=== PATIENT | female | born 1955 | race Caucasian/White ===

== ENCOUNTER 2019-08-17 06:33 | Emergency (ER) | payer OTHER ==
[~2019-08-17] VITALS: Ht 157.5 cm; Wt 80.3 kg
--- NOTE | 2019-08-17 07:42 | REP ---
Clinical: Pain. Technique: Neutral and frog lateral views of the left hip. Findings: Generalized age-related changes are appreciated. No acute fracture dislocation. Surrounding soft tissues are grossly unremarkable. Impression: Age-appropriate left hip. No acute fracture dislocation. Electronically Signed by Ten Mondragon MD 08/17/2019 07:33 A
--- NOTE | 2019-08-17 07:43 | REP ---
Clinical: Left knee pain. Technique: AP, lateral, bilateral oblique and sunrise view of the left knee. Findings: Early moderate tricompartmental osteoarthritic degenerative changes are appreciated. No acute fracture dislocation. No effusion. Impression: Moderate tricompartmental osteoarthritic changes. Electronically Signed by Ten Mondragon MD 08/17/2019 07:35 A
--- NOTE | 2019-08-17 07:45 | REP ---
Clinical: Pain. Technique: AP, lateral, bilateral oblique views of the left ankle. Findings: Generalized age-related changes are appreciated. No acute fracture dislocation. Ankle mortise appears intact. Small calcifications in the Achilles tendon suggests tendinopathy versus old injury. Impression: 1. Generalized age-related changes to the ankle. 2. Achilles tendinopathy versus changes related to old injury. Electronically Signed by Ten Mondragon MD 08/17/2019 07:37 A
[2019-08-17] MEDS ORDERED: EZET10TA21 (08:18)
[2019-08-17] MEDS ORDERED: GLIP5TAB20 (08:18)
[2019-08-17] MEDS ORDERED: OMEP-218 (08:18)
[2019-08-17] MEDS ORDERED: LOSA100T5 (08:18)
[2019-08-17] MEDS ORDERED: VICT18IN (08:18)
[2019-08-17] MEDS ORDERED: ALOG25TA (08:18)
[2019-08-17] MEDS ORDERED: ATOR80TA59 (08:18)
[2019-08-17] MEDS ORDERED: MELO15TA28 (08:18)
[2019-08-17] MEDS ORDERED: METF-791 (08:18)
--- NOTE | 2019-08-17 08:23 | REP ---
Duplex extremity venous ultrasound: Left lower extremity. History: Left lower extremity pain. Rule out DVT. Findings: The deep veins are anechoic and fully compressible from the groin to the popliteal fossa in the left lower extremity. Color flow imaging is homogeneous. Spectral Doppler interrogation demonstrates intact respiratory variation in flow and normal manual augmentation of flow. There is no evidence of deep vein thrombosis. Impression: Negative left lower extremity duplex venous ultrasound. No evidence of deep vein thrombosis. Electronically Signed by Nikita Munguia MD 08/17/2019 08:14 A
[2019-08-17] MEDS ORDERED: ACETAMINOPHEN 650MG ER TAB (TYLENOL ARTHRITIS) PO PRN (08:45)
--- NOTE | 2019-08-17 09:25 | REP ---
Five views lumbar spine: 08/17/2019. Indication: Low back pain. Left leg pain. Comparison: None. Findings: There is no acute fracture, subluxation or dislocation. Multilevel disc space narrowing is present most pronounced at L1/L2 and L4/L5. Mild levoscoliosis of the lumbar spine is present. The neural foramina appear patent. Aortoiliac atherosclerotic disease is present. No lytic or blastic lesions are noted. Impression: No acute osseous lumbar spine injury. Electronically Signed by Miller Meza DO 08/17/2019 09:17 A
[2019-08-17 09:43] VITALS: BP 152/78
== END 2019-08-17 10:08 | disposition home or self-care (01) ==
LOC: M ED 06:33
DX: M17.12 Unilateral primary osteoarthritis, left knee (principal); M19.072 Primary osteoarthritis, left ankle and foot; M76.62 Achilles tendinitis, left leg; E11.9 Type 2 diabetes mellitus without complications; I10 Essential (primary) hypertension; E78.5 Hyperlipidemia, unspecified; Z79.899 Other long term (current) drug therapy; Z79.84 Long term (current) use of oral hypoglycemic drugs; Z87.891 Personal history of nicotine dependence

== ENCOUNTER 2019-10-05 12:40 | Emergency (ER) | payer OTHER ==
[~2019-10-05] VITALS: Ht 157.5 cm; Wt 77.5 kg
[~2019-10-05 12:40] MED LIST: ALOG25TA; ATOR80TA59; EZET10TA21; GLIP5TAB20; LOSA100T5; MELO15TA28; METF-791; OMEP-218; VICT18IN
[2019-10-05] MEDS ORDERED: CARV25TA (12:55)
[2019-10-05] MEDS ORDERED: ACET-683 (12:55)
[2019-10-05] MEDS ORDERED: CIDA500T2 PO (12:55)
[2019-10-05] MEDS ORDERED: GABA-1171 (12:55)
[2019-10-05] MEDS ORDERED: ASPI81CH33 PO (12:55)
[2019-10-05 13:33] LABS: BASO % 0.2 % (0.0-1.0); EOS # 0.1 10^3/uL (0.0-0.5); EOS % 1.1 % (0.0-3.0); HEMATOCRIT 39.9 % (36.0-47.0); HEMOGLOBIN 13.2 g/dl (12.0-15.5); LYMPH # 1.3 10^3/uL (1.5-5.0); LYMPH % 23.4 % (24.0-44.0); MEAN CORPUSCULAR HEMOGLOBIN 28.8 pg (27.0-33.0); MEAN CORPUSCULAR HGB CONC 33.1 g/dl (32.0-36.5); MEAN CORPUSCULAR VOLUME 86.9 fl (80.0-96.0); MONO # 0.6 10^3/uL (0.0-0.8); MONO % 10.9 % (0.0-5.0); NEUTROPHILS # 3.4 10^3/uL (1.5-8.5); PLATELET COUNT, AUTOMATED 264 10^3/uL (150-450); RED BLOOD COUNT 4.59 10^6/uL (4.00-5.40); WHITE BLOOD COUNT 5.3 10^3/uL (4.0-10.0)
[2019-10-05 13:58] LABS: BILIRUBIN,DIRECT 0.2 MG/DL (0.0-0.2); BILIRUBIN,TOTAL 0.6 MG/DL (0.2-1.0); TOTAL PROTEIN 7.2 GM/DL (6.4-8.2)
[2019-10-05 14:03] LABS: INFLUENZA A AMPLIFICATION NEGATIVE (NEGATIVE); INFLUENZA B AMPLIFICATION NEGATIVE (NEGATIVE)
[2019-10-05] MEDS ORDERED: NS 1,000 ML IV ONE ×2 (15:00→16:30)
[2019-10-05 16:15] LABS: CALCIUM LEVEL 9.3 MG/DL (8.8-10.2); CREATININE FOR GFR 1.52 MG/DL (0.55-1.30); GLOMERULAR FILTRATION RATE 36.8 (>45); POTASSIUM SERUM 3.8 MEQ/L (3.5-5.1)
[2019-10-05 17:12] VITALS: BP 132/75
== END 2019-10-05 17:13 | disposition home or self-care (01) ==
LOC: M ED 12:40
DX: E86.0 Dehydration (principal); N17.9 Acute kidney failure, unspecified; E11.9 Type 2 diabetes mellitus without complications; I10 Essential (primary) hypertension; E78.5 Hyperlipidemia, unspecified; Z79.899 Other long term (current) drug therapy; Z79.82 Long term (current) use of aspirin; Z79.84 Long term (current) use of oral hypoglycemic drugs; Z87.891 Personal history of nicotine dependence

== ENCOUNTER → 2020-07-18 | Outpatient (CLI) | payer OTHER ==
[~2020-07-18] MED LIST changes: +ACET-683; +ASPI81CH33 PO; +CARV25TA; +CIDA500T2 PO; +GABA-1171; -METF-791; +METF-838
[2020-07-18 08:51] LABS: HEMATOCRIT 35.9 % (36.0-47.0); HEMOGLOBIN 11.8 g/dl (12.0-15.5); MEAN CORPUSCULAR HGB CONC 32.9 g/dl (32.0-36.5); MEAN CORPUSCULAR VOLUME 88.2 fl (80.0-96.0); PLATELET COUNT, AUTOMATED 219 10^3/uL (150-450); RED BLOOD COUNT 4.07 10^6/uL (4.00-5.40)
[2020-07-18 08:54] LABS: INR 0.93; PROTHROMBIN TIME 12.7 SECONDS (12.5-14.3)
[2020-07-18 09:12] LABS: ERYTHROCYTE SEDIMENTATION RATE 22 mm/hr (0-30)
[2020-07-18 09:18] LABS: BLOOD UREA NITROGEN 21 MG/DL (7-18); CALCIUM LEVEL 8.9 MG/DL (8.8-10.2); CARBON DIOXIDE LEVEL 27 MEQ/L (21-32); CHLORIDE LEVEL 107 MEQ/L (98-107); CREATININE FOR GFR 0.98 MG/DL (0.55-1.30); GLOMERULAR FILTRATION RATE > 60.0 (>45); GLUCOSE, FASTING 117 MG/DL (70-100); POTASSIUM SERUM 4.7 MEQ/L (3.5-5.1); SODIUM LEVEL 140 MEQ/L (136-145)
[2020-07-18 09:19] LABS: ALBUMIN 3.7 GM/DL (3.2-5.2); ALT/SGPT 21 U/L (12-78); BILIRUBIN,TOTAL 0.3 MG/DL (0.2-1.0); TOTAL PROTEIN 6.7 GM/DL (6.4-8.2)
--- NOTE | 2020-07-18 09:21 | REP ---
INDICATION: OSTEOARTHRITIS RIGHT KNEE- LABS/EKG 1ST COMPARISON: 08/07/2015 TECHNIQUE: PA and lateral. FINDINGS: The mediastinum and cardiac silhouette are normal. The lung gordon are clear and without acute consolidation, effusion, or pneumothorax. The skeletal structures are intact and normal. IMPRESSION: No acute cardiopulmonary process. <Electronically signed by Ten Mondragon > 07/18/20 0917
--- NOTE | 2020-07-18 12:18 | ECGEPIP ---
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
== END ==
LOC: M LAB 07:56
PROVIDERS: ATTEND Orthopaedic Surgery
DX: Z01.818 Encounter for other preprocedural examination (principal); M17.11 Unilateral primary osteoarthritis, right knee

== ENCOUNTER → 2020-07-26 | Outpatient (CLI) | payer OTHER ==
[~2020-07-26] MED LIST changes: -ACET-683; +ACET-683 PO; -ALOG25TA; +ALOG25TA PO; -CARV25TA; +CARV25TA PO; -EZET10TA21; +EZET10TA21 PO; -GABA-1171; +GABA-1171 PO; -GLIP5TAB20; +GLIP5TAB20 PO; -LOSA100T5; +LOSA100T5 PO; -MELO15TA28; +MELO15TA28 PO; -METF-838; +METF-838 PO; +MONT5TAB2 PO; -OMEP-218; +OMEP-218 PO; -VICT18IN; +VICT18IN SC
== END ==
LOC: M LABSMTC 10:34
PROVIDERS: ATTEND Anesthesiology
DX: Z01.812 Encounter for preprocedural laboratory examination (principal); Z20.828 Contact with and (suspected) exposure to other viral communicable diseases

== ENCOUNTER 2020-07-31 06:50 | Inpatient (IN) | payer OTHER ==
[~2020-07-31] VITALS: Ht 157.5 cm; Wt 83.4 kg
[~2020-07-31 06:50] MED LIST changes: -ATOR80TA59; +ATOR80TA59 PO; +LR 1,000 ML IV ONE; +ceFAZolin SOD 2 GM in IV 1 EA IV ONE
[2020-07-31] MEDS ORDERED: MIDAZOLAM INJ 2MG/2ML VIAL (J2250 PER 1MG) IV PRN (07:01)
[2020-07-31] MEDS ORDERED: fentaNYL 100 MCG/2 ML INJECTION (J3010) IV PRN ×2 (07:01→11:45)
[2020-07-31] MEDS ORDERED: ROPIvacaine 0.5% 30ML INJECTION (J2795 PER 1MG) XX ONE (08:15)
[2020-07-31] MEDS ORDERED: LIDOCAINE 1% MDV 20ML VIAL XX ONE (08:15)
[2020-07-31] MEDS ORDERED: MIDAZOLAM INJ 2MG/2ML VIAL (J2250 PER 1MG) As Ordered ONE (08:17)
[2020-07-31] MEDS ORDERED: LIDOCAINE 2% 100MG/5ML SDV (FOR ANES.) As Ordered ONE (08:17)
[2020-07-31] MEDS ORDERED: fentaNYL 100 MCG/2 ML INJECTION (J3010) As Ordered ONE (08:17)
[2020-07-31] MEDS ORDERED: ONDANSETRON 4MG/2ML VIAL As Ordered ONE (08:17)
[2020-07-31] MEDS ORDERED: propofoL 500 MG/50 ML VIAL As Ordered ONE (08:17)
[2020-07-31] MEDS ORDERED: dexameTHASONE 10MG/1ML VIAL PRES.FREE (J1100 PER 1MG) XX ONE (08:30)
[2020-07-31] MEDS ORDERED: TRANEXAMIC ACID 100 MG/ML 10ML VIAL As Ordered ONE (09:33)
[2020-07-31] MEDS ORDERED: BUPIVACAINE HCL 0.25% 10ML VIAL As Ordered ONE (09:34)
[2020-07-31] MEDS ORDERED: ceFAZolin 1GM VIAL (J0690 PER 500MG) As Ordered ONE (09:35)
[2020-07-31] MEDS ORDERED: EPINEPHrine INJ 1 MG/ML 1ML AMP As Ordered ONE (09:35)
[2020-07-31] MEDS ORDERED: BUPIVACAINE LIPOSOME/PF 1.3% 20ML VIAL (13.3MG/ML)(EXPAREL)(C9290 PER1MG) As Ordered ONE (09:35)
--- NOTE | 2020-07-31 10:16 | IPN ---
PROGRESS NOTE DATE: 07/31/2020 SUBJECTIVE AND PLAN: Patient seen and examined. She wishes to go ahead with a right total knee arthroplasty. She understands the nature of this, the risks of bleeding, infection, damage to nerves and vessels, persistent pain, adkins loosening, blood clots, medical problems, among others. Pre-op clearance was obtained.
[2020-07-31] MEDS ORDERED: ONDANSETRON 4MG/2ML VIAL IV PRN (11:45)
[2020-07-31] MEDS ORDERED: LR 1,000 ML IV SCH ×2 (11:45)
[2020-07-31] MEDS ORDERED: oxyCODONE 5MG TAB PO PRN (11:45)
[2020-07-31] MEDS ORDERED: ACETAMINOPHEN TAB 650MG DOSE (2X325MG) PO PRN (11:45)
[2020-07-31] MEDS ORDERED: MORPHINE 4 MG/ML 1ML VIAL/SYRINGE (J2270) IV PRN (11:45)
[2020-07-31] MEDS ORDERED: MORPHINE 2 MG/ML 1ML VIAL (J2270) IV PRN ×2 (11:45)
--- NOTE | 2020-07-31 12:28 | REP ---
INDICATION: S/P TOTAL COMPARISON: None. TECHNIQUE: Postoperative study, two views. FINDINGS: There is a total knee arthroplasty with the components tightly applied and in satisfactory positions and alignment. Skin armand are incidentally noted. IMPRESSION: Total knee arthroplasty as described. <Electronically signed by Jayesh Elizalde > 07/31/20 [id number]
[2020-07-31 12:30] VITALS: BP 143/84
[2020-07-31 13:00] VITALS: BP 143/80
--- NOTE | 2020-07-31 13:36 | HPE ---
HISTORY AND PHYSICAL DATE OF ADMISSION: 07/31/2020 ATTENDING PHYSICIAN: JSOE D SAN MD CHIEF COMPLAINT: Right knee pain and stiffness. HISTORY OF PRESENT ILLNESS: The patient is a 65-year-old female with progressively worsening right knee pain and stiffness. She failed to improve with conservative measures. She continues to have symptoms with weightbearing activities and activities of daily living. She has consented for an elective right total knee arthroplasty with Dr. San for her continued symptoms. Medical optimization completed with Dr. Clark and was reviewed at today's visit. CURRENT MEDICATIONS: 1. Tylenol 500 mg two capsules once daily. 2. Alogliptin 25 mg daily. 3. Amlodipine 2.5 mg daily. 4. Aspirin 81 mg daily. 5. Lipitor 80 mg daily. 6. Carvedilol 25 mg twice daily. 7. Ezetimibe 10 mg daily. 8. Gabapentin 100 mg daily. 9. Glipizide 5 mg once daily. 10.Glucosamine chondroitin 750/600 mg, two capsules twice daily. 11.Vicodin 5/325 mg four times daily as needed. 12.Losartan/Hydrochlorothiazide 100/25 mg daily. 13.Meloxicam 15 mg daily. 14.Metformin 500 mg twice daily. 15.Omeprazole 20 mg daily. 16.Singulair 10 mg daily. 17.Victoza subcutaneous. 18.Vitamin D 2000 units twice daily. ALLERGIES: There are no known drug allergies. CHRONIC MEDICAL CONDITIONS: 1. Hyperlipidemia. 2. Hypertension. 3. Diabetes. 4. Seasonal allergies. 5. Gastroesophageal reflux disease. PAST SURGICAL HISTORY: 1. Hernia repair. SOCIAL HISTORY: The patient does have second-hand cigarette smoke exposure. Rare use of alcohol. REVIEW OF SYSTEMS: The patient denies fevers, chills, nausea, vomiting or diarrhea. Denies chest pain, shortness of breath, lightheadedness, dizziness or headaches. Denies any recent upper respiratory or urinary tract infection symptoms. She denies any abdominal pain. Patient does continue to have right knee pain with weightbearing activities and activities of daily living. PHYSICAL EXAMINATION: GENERAL: Well-nourished, well-developed female in no apparent distress. She is alert and oriented and cooperative. Mood and affect are appropriate. VITAL SIGNS: Height 62 inches, weight 183.2 pounds, temperature 96.8. Blood pressure 154/84, heart rate 87, respirations 13. NECK: Supple without lymphadenopathy. HEART: Regular rate and rhythm. LUNGS: Clear to auscultation bilaterally. Breathing is regular and unlabored. ABDOMEN: Soft and nontender. Bowel sounds are present. MUSCULOSKELETAL: Right knee exhibits no gross abnormalities. Skin is intact. There is tenderness along the medial and lateral joint lines. Patient can extend the knee about 10 degrees and flex to 95 degrees. Right lower extremity strength is 5/5. No hip irritability elicited with range of motion testing. Calf is soft and nontender without evidence of DVT. She is neurovascularly intact distally. LABORATORY DATA: EKG sinus rhythm with early repolarization. Right knee x-ray notable for endstage degenerative changes. Chest x-ray no acute cardiopulmonary process. Pro-thrombin 12.7, INR 0.93. Complete blood count: ESR 22, WBC is 8, RBC is 4.07. Hemoglobin decreased at 11.8, hematocrit decreased to 35.9, platelets 219,000. Comprehensive metabolic profile: Fasting glucose elevated at 117, BUN elevated at 21. Creatinine 0.98, GFR greater than 60. Sodium 140, potassium 4.7, chloride 107, carbon dioxide 27, anion gap decreased at 6, calcium 8.9, AST 16, ALT 21, alkaline phosphatase 85, total bilirubin 0.3, total protein 6.7, albumin 3.7, albumin 3.7, albumin/globulin ratio 1.2. IMPRESSION: Right knee osteoarthritis with x-rays notable for endstage degenerative changes. PLAN: Patient has consented for an elective right total knee arthroplasty with Dr. San for her continued symptoms. Medical optimization completed with Dr. Clark. Patient will be NPO after midnight tonight unless directed to take one of her daily medications with a small sip of water by her primary foster care worker. She has been using her Hibiclens and Bactroban as directed. The patient is following her primary foster care worker's recommendations on how to take daily medications including any anticoagulants.
[2020-07-31 14:00] VITALS: BP 137/83
[2020-07-31] MEDS ORDERED: DEXTROSE 50% 50 ML SYRINGE IV PRN (14:45)
[2020-07-31] MEDS ORDERED: GLUCAGON INJ 1MG VIAL SC PRN (14:45)
[2020-07-31] MEDS ORDERED: GLUCOSE 4GM CHEW TABLET PO PRN (14:45)
[2020-07-31 15:00] VITALS: BP 142/86
[2020-07-31] MEDS ORDERED: LORA-674 PO (15:13)
[2020-07-31] MEDS ORDERED: hydroCHLOROthiazide 25 MG TAB PO ONE (15:30)
--- NOTE | 2020-07-31 15:31 | RO ---
OPERATIVE NOTE DATE OF OPERATION: 07/31/2020 PREOPERATIVE DIAGNOSIS: Right knee osteoarthritis. POSTOPERATIVE DIAGNOSIS: Right knee osteoarthritis. PROCEDURE: Right total knee arthroplasty using Attune rotating platform, cruciate-retaining size 3 femur, size 3 tibia, 10 polyethylene, 32 patellar button. SURGEON: Ariel San MD FORMING PROCESS WORKER: PENELOPE Jaimes ANESTHESIA: Spinal. EBL: 50. COMPLICATIONS: None. PROCEDURE: The patient was taken to the operating room and placed in the supine position after spinal anesthesia was induced. The right lower extremity was prepped and draped in the usual sterile fashion. A time out was performed. Tourniquet was inflated. A longitudinal incision was made over the anterior aspect of the knee. Sharp dissection was carried down through subcutaneous tissue. A medial parapatellar arthrotomy was performed per routine. I everted the patella, removed some of the fat pad, freed up the proximal and medial soft tissues for medial release. I then used canal-initiating reamer and the intramedullary guide on the femoral side set at the appropriate amount of valgus 5 degrees. The femur was then sized to be 3. The drill holes were placed in the end of the femur with external rotation dialed in and the cutting block was secured. The remaining cuts were made. I then prepared the tibial side and the tibial alignment guide was then pinned in place at 4 mm off the low side which was medial. Proximal tibial cut was made, I removed any excess osteophytes. I then used a dietetic aide to remove soft tissue and osteophytes from either side of the knee. Spacer blocks were then used and size 8 and 10 were the closest and I was leaning more toward the 10. I had good flexion and extension gaps, well balanced in full extension. I then prepared the tibial side. I first drilled on the medial tibial plateau where it was quite sclerotic and then placed a size 3 guide tray and this was drilled and broached. Trial components were placed after I did the sulcus cut on the femur. The size 10 seemed to be the most appropriate, it had excellent stability in flexion, extension, excellent alignment and excellent range of motion. I then free-hand cut the patella, removing about 7 mm of bone. I drilled the femur through the size 32 guide. The patellar button was placed. I did have to do a little bit of lateral release. I also drilled the holes in the end of the femur. I removed all the trial components. I then irrigated copiously, placed the Exparel in the deep tissues and posterior capsule and copiously irrigated, dried the surfaces as the land surveyor assistant prepared the bone cement in modern technique. I then cemented on the tibial tray, cemented on the femoral component after the polyethylene was inserted. The patella was cemented on. This was held in place with patellar clamp. I removed all excess bone cement. I irrigated copiously, placed the TXA in the deep tissues and then began repairing the deep layer with interrupted #1 Vicryl suture and running Stratafix. The patellar clamp was removed once the cement had hardened. I finished the closure after deep irrigation with the running Stratafix suture and watertight closure was made. I then put the knee through range of motion, had excellent stability, range of motion, no clicking or catching. I then irrigated, I did deflate the tourniquet when the cement was hardened. I closed the subcu with 2-0 Vicryl and the skin with armand. A sterile dressing was applied. She was taken to the recovery room in stable condition. There were no known complications. The plan will be routine postop. The land surveyor assistant was instrumental in holding retractors and assisting in mixing the bone cement and assisting in wound closure.
[2020-07-31] MEDS: PERCOCET 5MG/325MG TAB PO PRN (15:49)
[2020-07-31 16:00] VITALS: BP 143/88
[2020-07-31] MEDS: ceFAZolin SOD 2 GM in IV 1 EA IV SCH (17:13)
[2020-07-31] MEDS: HumaLOG INSULIN (NovoLOG) PER UNIT SC SCH (17:14)
--- NOTE | 2020-07-31 20:10 | CR.PDOC ---
General Date of Consultation: Jul 31, 2020 Attending Physician: Ariel San Consultation REASON FOR CONSULTATION/CHIEF COMPLAINT: Medical comanagement. HISTORY OF PRESENT ILLNESS: Mrs. Rice is a 65-year-old female with diabetes mellitus here for a right total knee arthroplasty. She had failed conservative measures and had decided to go forward with the total knee arthroplasty. had medically optimized patient. Patient had the right total knee arthroplasty on 07/31/2020 and patient was seen after surgery. When I saw her in the afternoon, she was up and walking to and from the bathroom. She feels well and the pain was controlled. She denied any fever or chills, lightheadedness or dizziness, chest pain, dyspnea, abdominal pain, or dysuria. She had no further questions or complaints. ALLERGIES: Please see below. HOME MEDICATIONS: Please see below. PAST MEDICAL HISTORY: 1. Hyperlipidemia 2. Hypertension 3. Diabetes mellitus 4. Seasonal allergies 5. GERD PAST SURGICAL HISTORY: 1. Hernia repair FAMILY HISTORY: Father: Diabetes mellitus and heart disease Mother: Diabetes mellitus and heart disease SOCIAL HISTORY: Tobacco use: Does have exposure to secondhand cigarette smoke ETOH: Rare Illicit drug use: Denies REVIEW OF SYSTEMS: CONSTITUTIONAL: Denies any fever or chills. Denies lightheadedness or dizziness. ENT: Denies rhinorrhea. Denies sore throat. Denies dysphagia. RESPIRATORY: Denies shortness of breath. Denies cough. CARDIOVASCULAR: Denies chest pain. Denies palpitations. GASTROINTESTINAL: Denies abdominal pain. GENITOURINARY: Denies dysuria. CUTANEOUS: Denies rashes. MUSCULOSKELETAL: Currently denies any pain. NEUROLOGICAL: Denies neuropathy. PSYCHOLOGICAL: Denies anxiety. Denies depression. PHYSICAL EXAMINATION: VITAL SIGNS: Please see below. GENERAL: Comfortable, in no apparent distress. HEENT: Head normocephalic/atraumatic, EOMI, sclera clear. NECK: Supple RESPIRATORY: Lungs clear to auscultation bilaterally, no rales, wheeze or rhonchi. CARDIOVASCULAR: Regular rate and rhythm. ABDOMEN: Soft, nontender, no guarding or rebound tenderness. Normal bowel sounds. MUSCLE SKELETAL: Upper extremity strength 5 out of 5. NEUROLOGICAL: CN 312 grossly intact, no focal deficits noted. PSYCHOLOGICAL: Normal mood and affect LABORATORY DATA: Please see below. ASSESSMENT/PLAN: 1. Right knee osteoarthritis Failed conservative measures Status post elective right TKA on 07/31/2020 2. Diabetes mellitus Holding Victoza, metformin, and glipizide While inpatient she'll be on sliding scale insulin Carb consistent diet 3. Hypertension Continue home antihypertensive 4. Hyperlipidemia Continue Lipitor 5. DVT prophylaxis Rivaroxaban Vital Signs/I&O Vital Signs Date Time Temp Pulse Resp B/P (MAP) Pulse Ox O2 Delivery O2 Flow Rate FiO2 07/31/20 16:19 17 07/31/20 16:00 97.3 103 143/88 (106) 94 Room Air 07/31/20 09:15 3 Laboratory Data Labs 24H Laboratory Tests 2 07/31/20 07:53: Bedside Glucose (Misc Panel) 127H 07/31/20 11:44: Bedside Glucose (Misc Panel) 119H 07/31/20 16:13: Bedside Glucose (Misc Panel) 212H Allergies Coded Allergies: No Known Allergies (Unverified , 10/05/19) Home Medications Scheduled Alogliptin Benzoate (Alogliptin) 25 Mg Tablet, 25 MG PO DAILY, (Reported) Aspirin (Aspirin) 81 Mg Tab.chew, 81 MG PO DAILY, (Reported) Atorvastatin Calcium (Atorvastatin Calcium) 80 Mg Tablet, 80 MG PO DAILY, (Reported) Carvedilol (Carvedilol) 25 Mg Tablet, 25 MG PO DAILY, (Reported) Ezetimibe (Ezetimibe) 10 Mg Tablet, 10 MG PO DAILY, (Reported) Gabapentin (Gabapentin) 100 Mg Capsule, 100 MG PO DAILY, (Reported) Glipizide (Glipizide ER) 5 Mg Tab.er.24, 5 MG PO DAILY, (Reported) Glucosamine/Chondr Walker A Sod (Cidaflex Tablet) 1 Each Tablet, 1 TAB PO DAILY, (Reported) Liraglutide (Victoza 2-Artemio) 0.6 Mg/0.1 Ml Pen.injctr, 1.2 MG SC DAILY, (Reported) Loratadine (Loratadine) 10 Mg Tablet, 10 MG PO DAILY, (Reported) Losartan/Hydrochlorothiazide (Losartan-Hctz 100-25 mg Tab) 1 Each Tablet, 1 TAB PO DAILY, (Reported) Meloxicam (Meloxicam) 15 Mg Tablet, 15 MG PO DAILY, (Reported) Metformin HCl (Metformin HCl ER) 500 Mg Tab.er.24h, 500 MG PO DAILY, (Reported) Montelukast Sodium (Montelukast Sodium) 10 Mg Tablet, 10 MG PO DAILY, (Reported) Omeprazole (Omeprazole) 20 Mg Capsule.dr, 20 MG PO DAILY, (Reported) Scheduled PRN Acetaminophen (Acetaminophen) 500 Mg Tablet, 1,000 MG PO TID PRN for PAIN, (Reported) JOSUE ANDREWS DO Jul 31, 2020 20:10
[2020-07-31] MEDS: ONDANSETRON 4MG/2ML VIAL IV PRN (20:19)
[2020-07-31] MEDS ORDERED: HumaLOG INSULIN (NovoLOG) PER UNIT SC SCH (21:00)
[2020-08-01 02:00] VITALS: BP 150/82
[2020-08-01] MEDS: ONDANSETRON 4MG/2ML VIAL IV PRN ×2 (02:44→09:16)
[2020-08-01] MEDS: PERCOCET 5MG/325MG TAB PO PRN ×2 (02:45→08:08)
[2020-08-01] MEDS: ceFAZolin SOD 2 GM in IV 1 EA IV SCH (02:49)
[2020-08-01 06:00] VITALS: BP 140/70
[2020-08-01] MEDS ORDERED: XARE10TA PO (06:37)
[2020-08-01] MEDS ORDERED: PERC5TAB12 PO (06:37)
[2020-08-01] MEDS: HumaLOG INSULIN (NovoLOG) PER UNIT SC SCH ×2 (07:30→12:00)
[2020-08-01 08:10] VITALS: BP 140/70
[2020-08-01 08:40] LABS: HEMATOCRIT 33.1 % (36.0-47.0); HEMOGLOBIN 11.2 g/dl (12.0-15.5); MEAN CORPUSCULAR HEMOGLOBIN 29.6 pg (27.0-33.0); MEAN CORPUSCULAR HGB CONC 33.8 g/dl (32.0-36.5); MEAN CORPUSCULAR VOLUME 87.3 fl (80.0-96.0); PLATELET COUNT, AUTOMATED 247 10^3/uL (150-450); RED BLOOD COUNT 3.79 10^6/uL (4.00-5.40)
[2020-08-01] MEDS ORDERED: MOM 30ML SUSPENSION UDC PO SCH (09:00)
[2020-08-01] MEDS ORDERED: EZETIMIBE 10 MG TAB (ZETIA) PO SCH (09:00)
[2020-08-01] MEDS ORDERED: ATORVASTATIN 20 MG TAB PO SCH (09:00)
[2020-08-01] MEDS ORDERED: MIRALAX *UNIT DOSE* 17GM PACKET PO SCH (09:00)
[2020-08-01] MEDS ORDERED: ASPIRIN 81 MG CHEW TABLET PO SCH (09:00)
[2020-08-01] MEDS ORDERED: LOSARTAN 50MG TABLET PO SCH (09:00)
[2020-08-01] MEDS ORDERED: CARVedilol 12.5 MG TAB PO SCH (09:00)
[2020-08-01] MEDS ORDERED: MONTELUKAST 10 MG TAB PO SCH (09:00)
[2020-08-01] MEDS ORDERED: OMEPRAZOLE 20 MG CAP PO SCH (09:00)
[2020-08-01] MEDS ORDERED: GABAPENTIN 100 MG CAP PO SCH (09:00)
[2020-08-01 09:09] LABS: CREATININE FOR GFR 1.11 MG/DL (0.55-1.30); GLOMERULAR FILTRATION RATE 52.7 (>45); POTASSIUM SERUM 3.4 MEQ/L (3.5-5.1)
[2020-08-01] MEDS ORDERED: ZOFR4TAB16 PO (09:37)
[2020-08-01 10:00] VITALS: BP 132/65
[2020-08-01] MEDS ORDERED: RIVAROXABAN 10 MG TAB (XARELTO) PO SCH (18:00)
--- NOTE | 2020-08-05 16:45 | DSES ---
DISCHARGE SUMMARY DATE OF ADMISSION: 07/31/2020 DATE OF DISCHARGE: 08/01/2020 ADMITTING DIAGNOSIS: Osteoarthritis, right knee. OTHER DIAGNOSES: 1. Elevated lipids. 2. Hypertension. 3. Diabetes. 4. Seasonal allergies. 5. Gastric reflux disease. DISCHARGE DIAGNOSIS: Osteoarthritis, right knee; status post right total knee arthroplasty. ATTENDING: Ariel San M.D. HISTORY: This is a 65-year-old female patient who had progressively worsening right knee pain and stiffness. She failed to improve with conservative management. She was admitted for elective knee replacement on the right side. HOSPITAL COURSE: The patient was admitted on the day of surgery and underwent a right total knee arthroplasty, which was uneventful. She did well in the postoperative period and the hospital course without complications. She was up with physical therapy per their protocol and her pain was controlled. On the day of discharge, she was weightbearing as tolerated on her right lower extremity. DISCHARGE INSTRUCTIONS: She will use Xarelto 10 mg for the protocol for DVT prophylaxis. She will resume her preoperative medications and diet. She will use oral pain medications for pain control. She will also use VARINDER stockings for 30 days postoperatively for DVT prophylaxis. She was given instructions that included, but not limited to wound ongoing activity limitations. She will follow-up in our office in 10-14 days for surgical follow-up. Please refer to the medical record for further details.
== END 2020-08-01 13:05 | disposition home health service (06) | DRG 302 ==
LOC: M OR 06:50 → M MS5PR 12:25
PROVIDERS: ADMIT Orthopaedic Surgery; ATTEND Orthopaedic Surgery
PROC: 0SRC0J9 Replacement of Right Knee Joint with Synthetic Substitute, Cemented, Open Approach (ICD-10-PCS; principal; 2020-07-31 09:30)
DX: M17.11 Unilateral primary osteoarthritis, right knee (principal); I10 Essential (primary) hypertension; E78.5 Hyperlipidemia, unspecified; E11.9 Type 2 diabetes mellitus without complications; J30.2 Other seasonal allergic rhinitis; K21.9 Gastro-esophageal reflux disease without esophagitis; Z79.82 Long term (current) use of aspirin; Z79.84 Long term (current) use of oral hypoglycemic drugs; Z79.891 Long term (current) use of opiate analgesic; Z79.899 Other long term (current) drug therapy; Z77.22 Contact with and (suspected) exposure to environmental tobacco smoke (acute) (chronic)

== ENCOUNTER → 2022-06-25 | Outpatient (CLI) | payer OTHER ==
[~2022-06-25] MED LIST changes: +LORA-674 PO; -LR 1,000 ML IV ONE; +MONT10TA97 PO; -MONT5TAB2 PO; +OMEP-173 PO; -OMEP-218 PO; +PERC5TAB12 PO; +XARE10TA PO; +ZOFR4TAB16 PO; -ceFAZolin SOD 2 GM in IV 1 EA IV ONE
[2022-06-25 11:53] LABS: HEMOGLOBIN 13.8 g/dl (12.0-15.5); MEAN CORPUSCULAR HEMOGLOBIN 28.6 pg (27.0-33.0); MEAN CORPUSCULAR HGB CONC 33.7 g/dl (32.0-36.5); MEAN CORPUSCULAR VOLUME 85.1 fl (80.0-96.0); PLATELET COUNT, AUTOMATED 249 10^3/uL (150-450); RED BLOOD COUNT 4.82 10^6/uL (4.00-5.40); WHITE BLOOD COUNT 6.6 10^3/uL (4.0-10.0)
[2022-06-25 12:04] LABS: INR 1.04; PROTHROMBIN TIME 13.8 SECONDS (12.5-14.5)
[2022-06-25 13:02] LABS: ALT/SGPT 29 U/L (12-78); BILIRUBIN,TOTAL 0.5 MG/DL (0.2-1.0); BLOOD UREA NITROGEN 24 MG/DL (7-18); CALCIUM LEVEL 9.5 MG/DL (8.8-10.2); CARBON DIOXIDE LEVEL 29 MEQ/L (21-32); CHLORIDE LEVEL 100 MEQ/L (98-107); CREATININE FOR GFR 0.85 MG/DL (0.55-1.30); GLOMERULAR FILTRATION RATE > 60.0 (>45); GLUCOSE, FASTING 113 MG/DL (70-100); SODIUM LEVEL 138 MEQ/L (136-145)
[2022-06-25 15:36] LABS: ERYTHROCYTE SEDIMENTATION RATE 13 mm/hr (0-30)
== END ==
LOC: M RAD 09:28
PROVIDERS: ATTEND Orthopaedic Surgery
DX: M16.11 Unilateral primary osteoarthritis, right hip (principal)

== ENCOUNTER 2022-07-23 09:09 | Inpatient (IN) | payer OTHER ==
[~2022-07-23] VITALS: Ht 154.9 cm; Wt 85.9 kg
[2022-07-23 14:06] LABS: BASO % 0.3 % (0.0-1.0); EOS # 0.3 10^3/uL (0.0-0.5); EOS % 4.8 % (0.0-3.0); HEMATOCRIT 34.2 % (36.0-47.0); HEMOGLOBIN 11.2 g/dl (12.0-15.5); LYMPH # 2.4 10^3/uL (1.5-5.0); LYMPH % 33.8 % (24.0-44.0); MEAN CORPUSCULAR HEMOGLOBIN 28.6 pg (27.0-33.0); MEAN CORPUSCULAR HGB CONC 32.7 g/dl (32.0-36.5); MEAN CORPUSCULAR VOLUME 87.2 fl (80.0-96.0); MONO # 0.4 10^3/uL (0.0-0.8); MONO % 6.2 % (2.0-8.0); NEUTROPHILS # 3.9 10^3/uL (1.5-8.5); NEUTROPHILS % 54.6 % (36.0-66.0); PLATELET COUNT, AUTOMATED 319 10^3/uL (150-450); RED BLOOD COUNT 3.92 10^6/uL (4.00-5.40); WHITE BLOOD COUNT 7.1 10^3/uL (4.0-10.0)
[2022-07-23 14:17] LABS: PROTHROMBIN TIME 13.4 SECONDS (12.5-14.5)
[2022-07-23 14:18] LABS: PARTIAL THROMBOPLASTIN TIME 28.4 SECONDS (24.8-34.2)
[2022-07-23 14:27] LABS: LIPASE 32 U/L (12-53)
[2022-07-23 14:29] LABS: ALBUMIN 3.7 G/DL (3.2-5.2); ALKALINE PHOSPHATASE 74 U/L (46-116); ALT/SGPT 20 U/L (7.0-40); AST/SGOT 26 U/L (<34); BILIRUBIN,DIRECT 0.3 MG/DL (<0.4); BILIRUBIN,TOTAL 0.9 MG/DL (0.3-1.2); BLOOD UREA NITROGEN 18 MG/DL (9-23); CALCIUM LEVEL 9.3 MG/DL (8.3-10.6); CARBON DIOXIDE LEVEL 31 MMOL/L (20-31); CHLORIDE LEVEL 99 MMOL/L (98-107); CREATININE FOR GFR 0.74 MG/DL (0.55-1.30); GLOMERULAR FILTRATION RATE > 60.0 (>45); GLUCOSE, FASTING 131 MG/DL (74-106); POTASSIUM SERUM 4.3 MMOL/L (3.5-5.1); SODIUM LEVEL 138 MMOL/L (136-145); TOTAL PROTEIN 6.6 G/DL (5.7-8.2)
[2022-07-23] MEDS ORDERED: ISOVUE-370 76% 100ML VIAL As Ordered ONE (14:31)
[2022-07-23] MEDS ORDERED: ELIQ2.5T PO (17:01)
[2022-07-23] MEDS ORDERED: DEXTROSE 50% 50 ML SYRINGE IV PRN (17:15)
[2022-07-23] MEDS ORDERED: GLUCAGON INJ 1MG VIAL SC PRN (17:15)
[2022-07-23] MEDS ORDERED: GLUCOSE 4GM CHEW TABLET PO PRN (17:15)
[2022-07-23] MEDS ORDERED: LOSA100T45 PO (17:21)
[2022-07-23] MEDS ORDERED: HYDR-3490 PO (17:21)
[2022-07-23] MEDS ORDERED: HOME MED LIST COMPLETE! XX SCH (17:25)
[2022-07-23] MEDS ORDERED: ACETAMINOPHEN 500 MG TAB PO PRN (17:30)
[2022-07-23] MEDS: INSULIN LISPRO (NovoLOG) PER UNIT SC SCH ×2 (17:30→21:00)
[2022-07-23 21:42] LABS: HEMATOCRIT 30.1 % (36.0-47.0); HEMOGLOBIN 9.9 g/dl (12.0-15.5)
[2022-07-23 22:28] VITALS: BP 162/83
[2022-07-23] MEDS: GABAPENTIN 100 MG CAP PO SCH (22:39)
[2022-07-23] MEDS: PANTOPRAZOLE 40MG VIAL IV SCH (22:39)
[2022-07-23] MEDS: ACETAMINOPHEN TAB 650MG DOSE (2X325MG) PO PRN (22:39)
[2022-07-23 23:13] VITALS: BP 158/83
[2022-07-24 06:05] VITALS: BP 141/74
[2022-07-24 06:38] LABS: HEMATOCRIT 32.7 % (36.0-47.0); HEMOGLOBIN 10.4 g/dl (12.0-15.5); MEAN CORPUSCULAR HEMOGLOBIN 28.1 pg (27.0-33.0); MEAN CORPUSCULAR HGB CONC 31.8 g/dl (32.0-36.5); MEAN CORPUSCULAR VOLUME 88.4 fl (80.0-96.0); PLATELET COUNT, AUTOMATED 328 10^3/uL (150-450); WHITE BLOOD COUNT 7.8 10^3/uL (4.0-10.0)
[2022-07-24 07:05] LABS: MAGNESIUM LEVEL 1.9 MG/DL (1.8-2.4)
[2022-07-24 07:08] LABS: ALBUMIN 3.6 G/DL (3.2-5.2); ALKALINE PHOSPHATASE 77 U/L (46-116); ALT/SGPT 18 U/L (7.0-40); AST/SGOT 19 U/L (<34); BILIRUBIN,TOTAL 0.7 MG/DL (0.3-1.2); BLOOD UREA NITROGEN 20 MG/DL (9-23); CALCIUM LEVEL 9.2 MG/DL (8.3-10.6); CARBON DIOXIDE LEVEL 33 MMOL/L (20-31); CHLORIDE LEVEL 95 MMOL/L (98-107); CREATININE FOR GFR 0.83 MG/DL (0.55-1.30); GLOMERULAR FILTRATION RATE > 60.0 (>45); GLUCOSE, FASTING 144 MG/DL (74-106); POTASSIUM SERUM 4.1 MMOL/L (3.5-5.1); SODIUM LEVEL 136 MMOL/L (136-145); TOTAL PROTEIN 6.7 G/DL (5.7-8.2)
[2022-07-24] MEDS ORDERED: MOM 30ML SUSPENSION UDC PO ONE (08:00)
[2022-07-24] MEDS: INSULIN LISPRO (NovoLOG) PER UNIT SC SCH ×4 (08:21→21:00)
[2022-07-24] MEDS: ATORVASTATIN 20 MG TAB PO SCH (08:21)
[2022-07-24] MEDS: EZETIMIBE 10MG TABLET (ZETIA) PO SCH (08:22)
[2022-07-24] MEDS: PANTOPRAZOLE 40MG VIAL IV SCH ×2 (08:22→21:10)
[2022-07-24 08:27] VITALS: BP 140/72
[2022-07-24] MEDS: LOSARTAN 50MG TABLET PO SCH (08:27)
[2022-07-24] MEDS ORDERED: POLYETHYLENE GLYCOL (MIRALAX) 238GM BOTTLE PO ONE ×2 (12:00→18:00)
[2022-07-24 12:52] LABS: HEMOGLOBIN 10.3 g/dl (12.0-15.5)
[2022-07-24] MEDS: ACETAMINOPHEN TAB 650MG DOSE (2X325MG) PO PRN (13:16)
[2022-07-24 14:00] VITALS: BP 140/72
[2022-07-24] MEDS: GABAPENTIN 100 MG CAP PO SCH (21:10)
[2022-07-24 21:52] VITALS: BP 152/77
[2022-07-25 04:00] VITALS: BP 150/72
[2022-07-25 06:44] LABS: BASO % 0.2 % (0.0-1.0); EOS # 0.4 10^3/uL (0.0-0.5); EOS % 6.1 % (0.0-3.0); HEMATOCRIT 31.3 % (36.0-47.0); HEMOGLOBIN 10.4 g/dl (12.0-15.5); LYMPH # 1.4 10^3/uL (1.5-5.0); LYMPH % 21.9 % (24.0-44.0); MEAN CORPUSCULAR HEMOGLOBIN 29.3 pg (27.0-33.0); MEAN CORPUSCULAR HGB CONC 33.2 g/dl (32.0-36.5); MEAN CORPUSCULAR VOLUME 88.2 fl (80.0-96.0); MONO # 0.5 10^3/uL (0.0-0.8); MONO % 7.7 % (2.0-8.0); NEUTROPHILS % 63.8 % (36.0-66.0); PLATELET COUNT, AUTOMATED 275 10^3/uL (150-450); RED BLOOD COUNT 3.55 10^6/uL (4.00-5.40); WHITE BLOOD COUNT 6.2 10^3/uL (4.0-10.0)
[2022-07-25 07:12] LABS: MAGNESIUM LEVEL 1.9 MG/DL (1.8-2.4)
[2022-07-25 07:14] LABS: ALBUMIN 3.8 G/DL (3.2-5.2); ALKALINE PHOSPHATASE 76 U/L (46-116); ALT/SGPT 21 U/L (7.0-40); AST/SGOT 33 U/L (<34); BILIRUBIN,TOTAL 0.8 MG/DL (0.3-1.2); BLOOD UREA NITROGEN 14 MG/DL (9-23); CALCIUM LEVEL 9.4 MG/DL (8.3-10.6); CARBON DIOXIDE LEVEL 28 MMOL/L (20-31); CHLORIDE LEVEL 98 MMOL/L (98-107); CREATININE FOR GFR 0.79 MG/DL (0.55-1.30); GLOMERULAR FILTRATION RATE > 60.0 (>45); GLUCOSE, FASTING 165 MG/DL (74-106); POTASSIUM SERUM 3.8 MMOL/L (3.5-5.1); SODIUM LEVEL 140 MMOL/L (136-145); TOTAL PROTEIN 6.6 G/DL (5.7-8.2)
[2022-07-25] MEDS: INSULIN LISPRO (NovoLOG) PER UNIT SC SCH ×2 (07:30→12:00)
[2022-07-25] MEDS ORDERED: ceFAZolin SOD 2 GM in IV 1 EA IV ONE (09:35)
[2022-07-25] MEDS ORDERED: AMPICILLIN SOD 2 GM in D5W MINI-BAG PLUS 100 ML IV ONE (09:45)
[2022-07-25] MEDS ORDERED: GENTAMICIN 100 MG in IV 1 EA IV ONE (09:45)
[2022-07-25] MEDS: ATORVASTATIN 20 MG TAB PO SCH (10:10)
[2022-07-25] MEDS: EZETIMIBE 10MG TABLET (ZETIA) PO SCH (10:10)
[2022-07-25] MEDS: LOSARTAN 50MG TABLET PO SCH (10:10)
[2022-07-25] MEDS: PANTOPRAZOLE 40MG VIAL IV SCH (10:52)
[2022-07-25] MEDS ORDERED: ceFAZolin 1GM VIAL IM ONE (12:00)
[2022-07-25] MEDS ORDERED: propofoL 200 MG/20 ML VIAL As Ordered ONE ×2 (16:05→16:54)
[2022-07-25] MEDS ORDERED: ceFAZolin 2 GM/D5W 50 ML IV BAG As Ordered ONE (16:16)
[2022-07-25] MEDS ORDERED: PANT40TA29 PO (16:18)
[2022-07-25] MEDS ORDERED: ONDANSETRON 4MG 2ML VIAL IV PRN (17:20)
[2022-07-25] MEDS ORDERED: LR 1,000 ML IV SCH (17:20)
[2022-07-25 17:30] VITALS: BP 171/80
== END 2022-07-25 18:44 | disposition home or self-care (01) | DRG 253 ==
LOC: M ED 09:09 → M ED INP 17:00 → ENRESERV 21:14 → M MSPAV 22:17
PROVIDERS: ADMIT Family Medicine; ATTEND Family Medicine
PROC: 0DBK8ZX Excision of Ascending Colon, Via Natural or Artificial Opening Endoscopic, Diagnostic (ICD-10-PCS; principal; 2022-07-25 09:30)
DX: K92.2 Gastrointestinal hemorrhage, unspecified (principal); D68.32 Hemorrhagic disorder due to extrinsic circulating anticoagulants; N28.1 Cyst of kidney, acquired; R16.0 Hepatomegaly, not elsewhere classified; E11.9 Type 2 diabetes mellitus without complications; K21.9 Gastro-esophageal reflux disease without esophagitis; K64.8 Other hemorrhoids; G47.33 Obstructive sleep apnea (adult) (pediatric); D62 Acute posthemorrhagic anemia; I10 Essential (primary) hypertension; D12.2 Benign neoplasm of ascending colon; E78.5 Hyperlipidemia, unspecified; T45.515A Adverse effect of anticoagulants, initial encounter; K57.30 Diverticulosis of large intestine without perforation or abscess without bleeding; N83.201 Unspecified ovarian cyst, right side; N83.202 Unspecified ovarian cyst, left side; Z79.84 Long term (current) use of oral hypoglycemic drugs; Z79.899 Other long term (current) drug therapy; Z98.890 Other specified postprocedural states

== ENCOUNTER → 2022-09-16 | Outpatient (REF) | payer OTHER, MEDICAID ==
[~2022-09-16] MED LIST changes: +ELIQ2.5T PO; +HYDR-3490 PO; +LOSA100T45 PO; +PANT40TA29 PO
== END ==
LOC: M SFHCDERM 14:19
PROVIDERS: ATTEND Nurse Practitioner Family
DX: C44.329 Squamous cell carcinoma of skin of other parts of face (principal)

== ENCOUNTER → 2022-10-19 | Outpatient (CLI) | payer MEDICAID, OTHER ==
[2022-10-19 14:27] LABS: CA19-9 TUMOR MARKER,CARBOHYDRA 7.6 U/ML (<35.0)
== END ==
LOC: M PLALAB 11:07
PROVIDERS: ATTEND Specialist
DX: N83.209 Unspecified ovarian cyst, unspecified side (principal)

== ENCOUNTER → 2022-11-13 | Outpatient (CLI) | payer OTHER | LOC: M WHC 09:21 | PROVIDERS: ATTEND Specialist | DX: N83.209 Unspecified ovarian cyst, unspecified side (principal) ==

== ENCOUNTER → 2023-06-21 | Outpatient (CLI) | payer MEDICARE, OTHER ==
[~2023-06-21] MED LIST changes: +LORA-1041 PO; -LORA-674 PO; -LOSA100T45 PO; +LOSA100T46 PO
== END ==
LOC: M WHC 09:08
PROVIDERS: ATTEND Family Medicine
DX: Z12.31 Encounter for screening mammogram for malignant neoplasm of breast (principal)

== ENCOUNTER → 2023-06-23 | Outpatient (CLI) | payer MEDICARE, OTHER | LOC: M WHC 09:59 | PROVIDERS: ATTEND Specialist | DX: N83.209 Unspecified ovarian cyst, unspecified side (principal); D25.9 Leiomyoma of uterus, unspecified ==

== ENCOUNTER 2023-07-23 11:30 | Day surgery (SDC) | payer MEDICARE, OTHER ==
[~2023-07-23] VITALS: Ht 12.7 cm; Wt 0.9 kg
[~2023-07-23 11:30] MED LIST changes: +JOINCAP2 PO; +NS 1,000 ML IV ONE; +VITAD400CA PO
[2023-07-23] MEDS ORDERED: LIDOCAINE 2% 100MG/5ML SDV (FOR ANES.) As Ordered ONE (13:57)
[2023-07-23] MEDS ORDERED: propofoL 200 MG/20 ML VIAL As Ordered ONE ×2 (13:57→14:24)
[2023-07-23 14:50] VITALS: BP 171/83; O2SAT 95
== END 2023-07-23 15:00 | disposition home or self-care (01) ==
LOC: M SDC 11:30
PROVIDERS: ATTEND Internal Medicine Gastroenterology
DX: K21.9 Gastro-esophageal reflux disease without esophagitis (principal); K44.9 Diaphragmatic hernia without obstruction or gangrene; E11.9 Type 2 diabetes mellitus without complications; I10 Essential (primary) hypertension; E78.00 Pure hypercholesterolemia, unspecified; N39.41 Urge incontinence; Z79.899 Other long term (current) drug therapy; Z79.82 Long term (current) use of aspirin; Z87.891 Personal history of nicotine dependence

== ENCOUNTER → 2024-07-11 | Outpatient (REF) | payer MEDICARE, OTHER, MEDICAID ==
[~2024-07-11] MED LIST changes: -NS 1,000 ML IV ONE
== END ==
LOC: M SFHCDERM 13:07
PROVIDERS: ATTEND Nurse Practitioner Family
DX: D04.4 Carcinoma in situ of skin of scalp and neck (principal)